=== PATIENT | male | born 1950 | race Caucasian/White ===

== ENCOUNTER → 2016-10-15 | Outpatient (CLI) | payer MEDICARE, OTHER ==
[~2016-10-15] MED LIST: AMLO10TA82 PO; ASPI-892 PO; BENA20TA72; BENA20TA72 PO; CIALIS PO; FEXO-14 PO; FEXO180T PO; FEXO30TA17; HCT25T PO; HYDR1TAB PO; OMEG1CAP74 PO; TRAM50TA2 PO; VITAMIN C 1000MG PO
--- NOTE | 2016-10-15 15:43 | Diagnostic Imaging Report ---
EXAMINATION: Two views of the cervical spine. INDICATION: Left-sided neck pain. FINDINGS: There is straightening of the cervical lordosis. The alignment of the posterior spinal line is satisfactory. The vertebral body heights are preserved. There is moderate disc height loss at the C5-6 level. There is satisfactory alignment of the lateral masses of C1 and C2. Anterior osteophytes are prominent at C5-6 and C6-7 with mild posterior osteophytes at C5-6 seen. IMPRESSION: Degenerative disc changes are most prominent at the C5-6 level with small posterior osteophytes seen. Dictated by: Dictated on workstation # [id number]
== END ==
LOC: RAD 10:45
PROVIDERS: ATTEND Family Medicine
DX: M47.812 Spondylosis without myelopathy or radiculopathy, cervical region (principal)
CPT/HCPCS: 72040

== ENCOUNTER → 2018-06-23 | Outpatient (CLI) | payer MEDICARE, OTHER ==
--- NOTE | 2018-06-23 11:00 | Diagnostic Imaging Report ---
CLINICAL INDICATION: Patient with family history of AAA. Exam: Ultrasound of the abdominal aorta. Comparison study: Ultrasound of the abdominal aorta dated 06/06/2016. Findings: Of note, the mid abdominal aorta is obscured by overlying bowel gas. The proximal and distal abdominal aorta measure 2.5 cm x 2.5 cm and 1.5 cm x 1.6 cm, in their AP and transverse dimensions, respectively. The bilateral common iliac arteries are not imaged on this exam. Impression: The mid abdominal aorta was obscured and unable to be evaluated. Otherwise, there is no evidence of aneurysmal dilation of the visualized portion of the abdominal aorta. Dictated by: Dictated on workstation # [id number]
== END ==
LOC: RAD 08:14
PROVIDERS: ATTEND Family Medicine
DX: Z13.6 Encounter for screening for cardiovascular disorders (principal); Z82.49 Family history of ischemic heart disease and other diseases of the circulatory system
CPT/HCPCS: 76775

== ENCOUNTER 2019-03-17 13:12 | Emergency (ER) | payer MEDICARE, OTHER ==
[~2019-03-17] VITALS: Ht 167.6 cm; Wt 81.6 kg
[2019-03-17] MEDS ORDERED: LIDOCAINE/EPI 2% 1:100,00 (XYLOCAINE) 20 ML VIAL INJ ONE (14:30)
--- NOTE | 2019-03-17 14:30 | ED Head Injury ---
General Chief Complaint: Laceration Stated Complaint: INJ AT HOME Nursing Triage Note: AMB TO ED REPORTS WAS PUTTING THE GARAGE DOOR DOWN HE WAS RUNNING INTO GARAGE AND DOOR HIT HIM ON TOP OF HEAD. NO LOC ,BUT DID KNOCK HIM TO GROUND Source: patient Exam Limitations: no limitations (NICHOLAS TORRES MD) History of Present Illness Date Seen by Provider: Mar 17, 2019 Time Seen by Provider: 13:59 Initial Comments Here with report hitting his head on the garage door. Apparently it was raining very hard and he was in his truck. He did the automatic garage residential door unit installer. When it was about three quarters of the [address] he jumped out of his truck and ran inside. He did not realize that the door had started to come back down for some reason and struck his head on the door. This did not come to the floor. He did not get knocked out. Denies other injury. Tetanus shot is up-to-date. Did have a fair amount of bleeding. He notes that he has laceration to the top of the head. He didn't shower and clean the wound before coming here. Injury occurred approximately an hour prior to arrival. Occurred: this afternoon Severity: moderate Location: occipital Method of Injury: direct blow Loss of Consciousness: no loss of consciousness Associated Systoms: No Nausea/Vomiting, No Weakness (NICHOLAS TORRES MD) Allergies and Home Medications Allergies Coded Allergies: Procaine HCl (Verified Allergy, 03/04/13) fluticasone propionate (Unverified Adverse Reaction, 02/24/13) MADE NASAL CONGESTION WORSE Home Medications Amlodipine Besylate 10 Mg Tablet, 10 MG PO DAILY, (Reported) Aspirin 81 Mg Tablet.dr, 81 MG PO DAILY, (Reported) Benazepril Hcl 20 Mg Tablet, 30 MG PO DAILY, (Reported) TAKES 1 & 1/2 (20MG) TABLETS DAILY Fexofenadine Hcl 60 Mg Tablet, 60 MG PO BID, (Reported) Hydrochlorothiazide 25 Mg Tab, 12.5 MG PO DAILY, (Reported) Hydrocodone Bit/Acetaminophen 1 Each Tablet, 1-2 EACH PO Q4HR PRN, (Reported) [place]-3/Dha/Epa/Fish Oil 1,000 Mg Capsule, 1,000 MG PO DAILY, (Reported) [Cialis] , 1 TAB PO EVERY OTHER DAY PRN, (Reported) NEEDED FOR ERECTILE DYSFUNCTION UNSURE OF STRENGTH [Vitamin C 1000MG] , 1,000 MG PO DAILY, (Reported) Patient Home Medication List Home Medication List Reviewed: Yes (NICHOLAS TORRES MD) Review of Systems Review of Systems Constitutional: see HPI; No dizziness, No weakness Eyes: No Symptoms Reported Respiratory: no symptoms reported Cardiovascular: no symptoms reported Musculoskeletal: No back pain, No muscle weakness; neck pain (chronic and unchanged) Skin: change in color, lesions Psychiatric/Neurological: No Symptoms Reported (NICHOLAS TORRES MD) Past Wyxkipn-Qlhlcz-Rtguhy Hx Past Med/Social Hx: Reviewed Nursing Past Med/Soc Hx (NICHOLAS TORRES MD) Patient Social History Alcohol Use: Past History Alcohol Beverage of Choice: Beer, Whiskey Recreational Drug Use: No Smoking Status: Never a Smoker Recent Foreign Travel: No Contact w/Someone Who Travel: No Recent Infectious Disease Expo: No (NICHOLAS TORRES MD) Immunizations Up To Date Tetanus Booster (TDap): Unknown (NICHOLAS TORRES MD) Past Medical History Surgeries: Yes (HERNIA) Respiratory: Yes Asthma Cardiac: Yes Hypertension Neurological: Yes Reproductive Disorders: No Gastrointestinal: No (HERNIAS) Musculoskeletal: No Endocrine: No Integumentary: No Blood Disorders: No (NICHOLAS TORRES MD) Family Medical History Reviewed Nursing Family Hx (NICHOLAS TORRES MD) No Pertinent Family Hx (NICHOLAS TORRES MD) Physical Exam Vital Signs Vital Signs - First Documented 03/17/19 13:32 Temp 96.5 Pulse 72 Resp 18 B/P (MAP) 144/82 (102) Pulse Ox 96 O2 Delivery Room Air (EDITH CAMPBELL) Vital Signs Capillary Refill : Less Than 3 Seconds (NICHOLAS TORRES MD) Height, Weight, BMI Height: 5'6.00" Weight: 180lbs. oz. 81.052103xu; BMI Method:Stated General Appearance: WD/WN, no apparent distress HEENT: PERRL/EOMI, pharynx normal Neck: non-tender, full range of motion, supple, normal inspection Cardiovascular: regular rate, rhythm, no murmur Respiratory: lungs clear, normal breath sounds Psychiatric: alert, oriented x 3 Crainal Nerves: normal hearing, normal speech, PERRL Coordination/Gait: normal gait Motor/Sensory: no motor deficit, no sensory deficit Skin: warm/dry, other (8 cm horseshoe-shaped laceration to the top of the head with the opening at the front and the closed and to the back.) (NICHOLAS TORRES MD) Stone Coma Score Best Eye Response: (4) Open Spontaneously Best Verbal Response: (5) Oriented Best Motor Response: (6) Obeys Commands (NICHOLAS TORRES MD) Procedures/Interventions Wound Location: Scalp (frontal) Wound Length (cm): 6.5 (Wound 5 x 1.5 cm) Wound's Depth, Shape: superficial, flap Wound Explored: clean Irrigated w/ Saline (ccs): 1500 Betadine Prep?: Yes Anesthesia: Lidocaine w/ Epi Volume Anesthetic (ccs): 5 Wound Debrided: minimal Staple Repair: Stapler 35W Number of Sutures: 11 Sterile Dressing Applied?: No Progress Wound well approximated, no active bleeding after closure, patient tolerated procedure well. (EDITH CAMPBELL) Progress/Results/Core Measures Results/Orders Medications Given in ED Current Medications Medications Dose Ordered Sig/Christopher Route Start Time Stop Time Status Last Admin Dose Admin Diphtheria/ Tetanus/Acell Pertussis 0.5 ml ONCE ONCE IM 03/17/19 14:45 03/17/19 14:46 DC 03/17/19 14:46 0.5 ML (EDITH CAMPBELL) Vital Signs/I&O 03/17/19 13:32 Temp 96.5 Pulse 72 Resp 18 B/P (MAP) 144/82 (102) Pulse Ox 96 O2 Delivery Room Air (EDITH CAMPBELL) Blood Pressure Mean: 102 Progress Progress Note : Progress Note Seen and evaluated. CT head ordered. Laceration repair. 1444: Patient reports that he is actually not sure if he had tetanus now in the last 5 years so we will go ahead and give that to him. (NICHOLAS TORRES MD) Diagnostic Imaging Diagonstic Imaging: CT Plain Films/CT/US/NM/MRI: head Comments NAME: [facility] REC#: [id number] PT STATUS: REG ER : 1950 PHYSICIAN: NICHOLAS TORRES MD ADMIT DATE: 03/17/19/ER Draft Date of Exam:03/17/19 CT HEAD WO PROCEDURE: CT head without contrast. TECHNIQUE: Multiple contiguous axial images were obtained through the brain without the use of intravenous contrast. Auto Exposure Controls were utilized during the CT exam to meet ALARA standards for radiation dose reduction. INDICATION: Head injury with laceration to the top of the head. COMPARISON: No prior studies are available for comparison. FINDINGS: Ventricles and sulci are within normal limits. No sulcal effacement or midline shift is seen. No acute intra-axial or extra-axial hemorrhage is seen. Cisterns are patent. Visualized paranasal sinuses are clear. No depressed calvarial fracture is seen. IMPRESSION: No acute intracranial process is detected. Dictated on workstation # [id number] Dict: 03/17/19 1439 Trans: 03/17/19 1443 [id number] Interpreted by: SUSAN HUNTER MD Electronically signed by: (NICHOLAS TORRES MD) Departure Impression Primary Impression: Scalp laceration Qualified Codes: S01.01XA - Laceration without foreign body of scalp, initial encounter Additional Impression: Head injury due to trauma Qualified Codes: S09.90XA - Unspecified injury of head, initial encounter Disposition: HOME, SELF-CARE Condition: Improved Departure-Patient Inst. Decision time for Depature: 14:47 (NICHOLAS TORRES MD) Referrals: ALEKSANDR VALENCIA MD (PCP/Family) Primary Care Physician Patient Instructions: Laceration Repair With [place] (DC), Minor Head Injury (DC) Add. Discharge Instructions: All discharge instructions reviewed with patient and/or family. Voiced understanding. You may take Tylenol/acetaminophen 1000 mg every 6 hours as needed for pain. You may take ibuprofen 600 mg every 8 hours as needed for pain. [place] out in 7 days. Follow-up with your DrJake in a few days for recheck. Your tetanus shot was updated today. You may use antibiotic ointment over stable wound daily. It is okay to shower but do not soak wound in any body of water. Return for worse pain, vision problems, weakness, balance problems, vomiting or other concerns as needed. NICHOLAS TORRES MD Mar 17, 2019 14:30 EDITH CAMPBELL Mar 17, 2019 15:13
--- NOTE | 2019-03-17 14:43 | Diagnostic Imaging Report ---
PROCEDURE: CT head without contrast. TECHNIQUE: Multiple contiguous axial images were obtained through the brain without the use of intravenous contrast. Auto Exposure Controls were utilized during the CT exam to meet ALARA standards for radiation dose reduction. INDICATION: Head injury with laceration to the top of the head. COMPARISON: No prior studies are available for comparison. FINDINGS: Ventricles and sulci are within normal limits. No sulcal effacement or midline shift is seen. No acute intra-axial or extra-axial hemorrhage is seen. Cisterns are patent. Visualized paranasal sinuses are clear. No depressed calvarial fracture is seen. IMPRESSION: No acute intracranial process is detected. Dictated by: Dictated on workstation # [id number]
[2019-03-17] MEDS ORDERED: TETANUS,DIPTH,PERTUSS P/F (BOOSTRIX) 0.5 ML VIAL IM ONE (14:45)
[2019-03-17 15:14] VITALS: BP 138/90
--- OUTSIDE RECORDS SUMMARY | 2019-03-17 16:39 | XMS REPORT | Continuity of Care Document ---
Author Organization Unknown Address Unknown Allergies Active Description Code Type Severity Reaction Onset Reported/Identified Relationship to Patient Clinical Status Yes fluticasone propionate [id number] Drug Allergy Unknown N/A 02/24/2013 Yes Procaine HCl [id number] Drug Allergy Unknown N/A 03/04/2013 Medications There is no data. 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 03/04/2013 CHERYL JIMENEZ, PHIL Rivera Ot 550.90 UNILAT INGUINAL HERNIA 03/04/2013 CHERYL JIMENEZ, PHIL Rivera Ot 553.1 UMBILICAL HERNIA 12/28/2014 Ot V17.1 12/28/2014 Ot 401.9 12/28/2014 Ot V12.54 12/28/2014 CHERYL JIMENEZ, PHIL Rivera Ot 401.9 12/28/2014 CHERYL JIMENEZ, PHIL Rivera Ot 550.90 12/28/2014 CHERYL JIMENEZ, PHIL Rivera Ot 553.20 12/28/2014 CHERYL JIMENEZ, PHIL Rivera Ot V72.81 12/28/2014 CHERYL JIMENEZ, PHIL Rivera Ot V74.8 12/28/2014 SIDDHARTHA DAVISON MD Ot V17.49 05/09/2015 SIDDHARTHA DAVISON MD Ot V17.49 05/18/2015 SIDDHARTHA DAVISON MD Ot V17.49 06/06/2016 ALEKSANDR VALENCIA MD Ot I72.9 ANEURYSM OF UNSPECIFIED SITE 06/07/2016 ALEKSANDR VALENCIA MD Ot Z13.6 ENCOUNTER FOR SCREENING FOR CARDIOVASCUL 06/10/2016 ALEKSANDR VALENCIA MD Ot Z13.6 ENCOUNTER FOR SCREENING FOR CARDIOVASCUL 06/27/2016 ALEKSANDR VALENCIA MD Ot Z13.6 ENCOUNTER FOR SCREENING FOR CARDIOVASCUL 09/23/2016 Ot V17.1 FAMILY HX-STROKE 09/23/2016 Ot 401.9 HYPERTENSION NOS 09/23/2016 Ot V12.54 PERSONAL HX OF TIA, CEREBRAL INFARCTION 09/23/2016 CHERYL JIMENEZ, PHIL Rivera Ot 401.9 HYPERTENSION NOS 09/23/2016 CHERYL JIMENEZ, PHIL Rivera Ot 550.90 UNILAT INGUINAL HERNIA 09/23/2016 CHERYL JIMENEZ, PHIL Rivera Ot 553.20 VENTRAL HERNIA NOS 09/23/2016 CHERYL JIMENEZ, PHIL Rivera Ot V72.81 APUT-LWP-AAQSORPTL CARDIOVASCULAR 09/23/2016 CHERYL JIMENEZ, PHIL Rivera Ot V74.8 SCREEN-BACTERIAL DIS NEC 09/23/2016 SIDDHARTHA DAVISON MD Ot V17.49 FAMILY HISTORY OF OTHER CARDIOVASCULAR D 10/16/2016 ALEKSANDR VALENCIA MD Ot M47.812 SPONDYLOSIS W/O MYELOPATHY OR RADICULOPA 10/31/2016 ALEKSANDR VALENCIA MD, Ot M47.812 SPONDYLOSIS W/O MYELOPATHY OR RADICULOPA 06/23/2018 SIDDHARTHA DAVISON MD Ot V17.49 FAMILY HISTORY OF OTHER CARDIOVASCULAR D 06/23/2018 ALEKSANDR VALENCIA MD Ot Z13.6 ENCOUNTER FOR SCREENING FOR CARDIOVASCUL 06/23/2018 ALEKSANDR VALENCIA MD Ot M47.812 SPONDYLOSIS W/O MYELOPATHY OR RADICULOPA 06/23/2018 SIDDHARTHA DAVISON MD Ot V17.49 FAMILY HISTORY OF OTHER CARDIOVASCULAR D 06/23/2018 ALEKSANDR VALENCIA MD Ot Z13.6 ENCOUNTER FOR SCREENING FOR CARDIOVASCUL 06/23/2018 ALEKSANDR VALENCIA MD Ot M47.812 SPONDYLOSIS W/O MYELOPATHY OR RADICULOPA 06/25/2018 ALEKSANDR VALENCIA MD Ot Z13.6 ENCOUNTER FOR SCREENING FOR CARDIOVASCUL 06/25/2018 ALEKSANDR VALENCIA MD Ot Z82.49 FAMILY HX OF ISCHEM HEART DIS AND OTH DI 07/17/2018 ALEKSANDR VALENCIA MD Ot Z13.6 ENCOUNTER FOR SCREENING FOR CARDIOVASCUL 07/17/2018 ALEKSANDR VALENCIA MD Ot Z82.49 FAMILY HX OF ISCHEM HEART DIS AND OTH DI Procedures There is no data. Results There is no data. Encounters ACCT No. Visit Date/Time Discharge Status Pt. Type Provider Facility Loc./Unit Complaint [id number] 06/23/2018 08:14:00 06/23/2018 23:59:59 CLS Outpatient ALEKSANDR VALENCIA MD [facility] RAD FAMILY HX OF AORTIC ANEURYSM [id number] 10/15/2016 10:45:00 10/15/2016 23:59:59 CLS Outpatient ALEKSANDR VALENCIA MD Via [facility] RAD LT SIDED CERVICAL NECK PAIN [id number] 06/06/2016 09:40:00 06/06/2016 23:59:59 CLS Outpatient ALEKSANDR VALENCIA MD [facility] RAD MOTHER AND FATHER W/AORTIC ANEURYSM [id number] 03/24/2015 08:27:00 03/24/2015 23:59:59 CLS Outpatient SIDDHARTHA DAVISON MD [facility] RAD FAMILY HX OF ABDOMINAL AORTIC ANEURIMS [id number] 08/04/2013 09:57:00 08/04/2013 23:59:59 CLS Outpatient SIDDHARTHA DAVISON MD [facility] RAD FAM HX OF ANURYSM [id number] 03/04/2013 06:07:00 03/04/2013 13:15:00 DIS Outpatient PHIL LUNA MD Via [facility] RIGHT INGUINAL AND VENTRAL HERNIAS [id number] 02/24/2013 08:41:00 02/24/2013 23:59:59 CLS Outpatient PHIL LUNA MD [facility] PREOP RIGHT INGUINAL AND VENTRAL HERNIAS [id number] 01/31/2013 18:48:00 01/31/2013 21:16:00 DIS Emergency ANGELA EDWARDS [facility] ER R SIDE ABD PAIN [id number] 07/15/2012 09:37:00 Document Registration [id number] 07/02/2011 07:06:00 Document Registration [id number] 10/25/2009 12:46:00 Document Registration
== END 2019-03-17 15:14 | disposition home or self-care (01) ==
LOC: EDUNIT# 13:12 → ER 13:12
DX: S09.90XA Unspecified injury of head, initial encounter (principal); S01.01XA Laceration without foreign body of scalp, initial encounter; I10 Essential (primary) hypertension; J45.909 Unspecified asthma, uncomplicated; R40.2142 Coma scale, eyes open, spontaneous, at arrival to emergency department; R40.2252 Coma scale, best verbal response, oriented, at arrival to emergency department; R40.2362 Coma scale, best motor response, obeys commands, at arrival to emergency department; Z98.890 Other specified postprocedural states; Z79.82 Long term (current) use of aspirin; Z88.4 Allergy status to anesthetic agent; Z88.8 Allergy status to other drugs, medicaments and biological substances; W22.8XXA Striking against or struck by other objects, initial encounter; Y93.02 Activity, running
CPT/HCPCS: 12015; 70450; 90471; 90715

== ENCOUNTER 2019-03-26 10:25 | Emergency (ER) | payer MEDICARE, OTHER ==
[~2019-03-26] VITALS: Ht 167.6 cm; Wt 81.6 kg
[2019-03-26 10:46] VITALS: BP 135/85
--- OUTSIDE RECORDS SUMMARY | 2019-03-26 19:29 | XMS REPORT | Continuity of Care Document ---
Author Organization Unknown Address Unknown Allergies Active Description Code Type Severity Reaction Onset Reported/Identified Relationship to Patient Clinical Status Yes fluticasone propionate [id number] Drug Allergy Unknown N/A 02/24/2013 Yes Procaine HCl [id number] Drug Allergy Unknown N/A 03/04/2013 Medications There [...] 09/23/2016 CHERYL JIMENEZ, PHIL Rivera Ot V72.81 [facility]-BABEZMC[facility] CARDIOVASCULAR 09/23/2016 CHERYL JIMENEZ, PHIL Rivera Ot [...] W/O MYELOPATHY OR RADICULOPA 06/25/2018 ALEKSANDR VALENCIA MD, Ot Z13.6 ENCOUNTER FOR SCREENING FOR CARDIOVASCUL 06/25/2018 ALEKSANDR VALENCIA MD, Ot Z82.49 FAMILY HX OF ISCHEM HEART DIS AND OTH DI 07/17/2018 ALEKSANDR VALENCIA MD, Ot Z13.6 ENCOUNTER FOR SCREENING FOR CARDIOVASCUL 07/17/2018 ALEKSANDR VALENCIA MD, Ot Z82.49 FAMILY HX OF ISCHEM HEART DIS AND OTH DI 03/23/2019 NICHOLAS TORRES MD, Ot I10 ESSENTIAL (PRIMARY) HYPERTENSION 03/23/2019 NICHOLAS TORRES MD, Ot J45.909 UNSPECIFIED ASTHMA, UNCOMPLICATED 03/23/2019 NICHOLAS TORRES MD, Ot R40.2142 COMA SCALE, EYES OPEN, SPONTANEOUS, EMR 03/23/2019 NICHOLAS TORRES MD, Ot R40.2252 COMA SCALE, BEST VERBAL RESPONSE, ORIENT 03/23/2019 NICHOLAS TORRES MD, Ot R40.2362 COMA SCALE, BEST MOTOR RESPONSE, OBEYS C 03/23/2019 NICHOLAS TORRES MD, Ot S01.01XA LACERATION WITHOUT FOREIGN BODY OF SCALP 03/23/2019 NICHOLAS TORRES MD, Ot S09.90XA UNSPECIFIED INJURY OF HEAD, INITIAL ENCO 03/23/2019 NICHOLAS TORRES MD, Ot W22.8XXA STRIKING AGAINST OR STRUCK BY OTHER OBJE 03/23/2019 NICHOLAS TORRES MD, Ot Y93.02 ACTIVITY, RUNNING 03/23/2019 NICHOLAS TORRES MD, Ot Z79.82 SHELTER (CURRENT) USE OF ASPIRIN 03/23/2019 NICHOLAS TORRES MD Ot Z88.4 ALLERGY STATUS TO ANESTHETIC AGENT STATU 03/23/2019 NICHOLAS TORRES MD, Ot Z88.8 ALLERGY STATUS TO OT DRUG/MEDS/BIOL SUB 03/23/2019 NICHOLAS TORRES MD, Ot Z98.890 OTHER SPECIFIED POSTPROCEDURAL STATES Procedures There is no data. Results There is no data. Encounters ACCT No. Visit Date/Time Discharge Status Pt. Type Provider Facility Loc./Unit Complaint [id number] 03/26/2019 10:26:00 03/26/2019 10:49:00 DIS Emergency NICHOLAS TORRES MD [facility] ER STAPLE REMOVAL [id number] 2019 13:12:00 2019 15:14:00 DIS Outpatient NICHOLAS TORRES MD [facility] ER INJ AT HOME [id number] 06/23/2018 08:14:00 06/23/2018 23:59:59 CLS Outpatient ALEKSANDR VALENCIA MD [facility] RAD FAMILY HX OF AORTIC ANEURYSM [id number] 10/15/2016 10:45:00 10/15/2016 23:59:59 CLS Outpatient ALEKSANDR VALENCIA MD [facility] RAD LT SIDED CERVICAL NECK PAIN [id number] 06/06/2016 09:40:00 06/06/2016 23:59:59 CLS Outpatient ALEKSANDR VALENCIA MD [facility] RAD MOTHER AND FATHER W/AORTIC ANEURYSM [id number] 03/24/2015 08:27:00 03/24/2015 23:59:59 CLS Outpatient SIDDHARTHA DAVISON MD [facility] RAD FAMILY HX OF ABDOMINAL AORTIC ANEURIMS [id number] 08/04/2013 09:57:00 08/04/2013 23:59:59 CLS Outpatient SIDDHARTHA DAVISON MD [facility] RAD FAM HX OF ANURYSM [id number] 03/04/2013 06:07:00 03/04/2013 13:15:00 DIS Outpatient PHIL LUNA MD [facility] SDC RIGHT INGUINAL AND VENTRAL HERNIAS [id number] 02/24/2013 08:41:00 02/24/2013 23:59:59 CLS Outpatient PHIL LUNA MD [facility] PREOP RIGHT INGUINAL AND VENTRAL HERNIAS [id number] 01/31/2013 18:48:00 01/31/2013 21:16:00 DIS Emergency ANGELA EDWARDS [facility] ER R SIDE ABD PAIN [id number] 07/15/2012 09:37:00 Document Registration [id number] 07/02/2011 07:06:00 Document Registration [id number] 10/25/2009 12:46:00 Document Registration
== END 2019-03-26 10:49 | disposition home or self-care (01) ==
LOC: EDUNIT# 10:25 → ER 10:26
DX: S01.91XD Laceration without foreign body of unspecified part of head, subsequent encounter (principal); X58.XXXD Exposure to other specified factors, subsequent encounter

== ENCOUNTER → 2019-07-12 | Outpatient (CLI) | payer MEDICARE, OTHER ==
--- NOTE | 2019-07-12 09:24 | Diagnostic Imaging Report ---
INDICATION: Family history of aortic aneurysm. COMPARISON: June 23, 2018. TECHNIQUE: Ultrasound of the abdominal aorta dated July 12, 2019. FINDINGS: The proximal abdominal aorta measures 2.3 x 2.1 cm. The midabdominal aorta measures 1.7 x 1.6 cm. The distal abdominal aorta measures 1.7 x 1.7 cm. There is normal tapering of the abdominal aorta. The bilateral common iliac arteries are not dilated. IMPRESSION: No aneurysmal dilatation of the abdominal aorta. Dictated by: Dictated on workstation # [id number]
== END ==
LOC: RAD 08:38
PROVIDERS: ATTEND Family Medicine
DX: Z01.89 Encounter for other specified special examinations (principal); Z83.2 Family history of diseases of the blood and blood-forming organs and certain disorders involving the immune mechanism
CPT/HCPCS: 76775

== ENCOUNTER 2019-07-21 05:37 | Outpatient (CLI) | payer MEDICARE, OTHER ==
[~2019-07-21] VITALS: Ht 170.2 cm; Wt 81.8 kg
[2019-07-21] MEDS ORDERED: HYDR25TA4 PO (13:45)
[2019-07-21] MEDS ORDERED: ASCO10006 PO (13:45)
[2019-07-21] MEDS ORDERED: OMEG1200 PO (13:45)
[2019-07-21] MEDS ORDERED: ASPI-479 PO (13:45)
[2019-07-21] MEDS ORDERED: FEXO-45 PO (13:45)
[2019-07-21] MEDS ORDERED: BENA20TA7 PO (13:45)
[2019-07-21] MEDS ORDERED: AMLO10TA7 PO (13:45)
== END 2019-07-21 13:46 | disposition home or self-care (01) ==
LOC: PREOP 05:37
PROVIDERS: ATTEND Surgery
DX: Z01.818 Encounter for other preprocedural examination (principal)

== ENCOUNTER 2019-07-28 08:23 | Day surgery (SDC) | payer MEDICARE, OTHER ==
--- NOTE | 2019-07-19 09:30 | HISTORY AND PHYSICAL ---
DATE OF SERVICE: 07/28/2019 PROCEDURE DATE: 07/28/2019. ATTENDING PHYSICIAN: Dr. Gallo. HISTORY OF PRESENT ILLNESS: The patient is a 69-year-old male, who was referred over to us for a screening colonoscopy. The patient reports that at this point in his life he has never had one done before. He denies any blood in his stool as well as no family history of colon cancer. He denies any diarrhea, constipation or any abdominal pain. PAST MEDICAL HISTORY: Stroke in 1998, hypertension, basal and squamous cell skin cancers. PAST SURGICAL HISTORY: Tonsillectomy at 4 years of age, right hand repair of third, fourth and fifth digits after a band saw accident, laparoscopic right inguinal hernia repair and umbilical hernia repair in 2011. ALLERGIES: LATEX. MEDICATIONS: 1. Hydrochlorothiazide 25 mg daily. 2. Benazepril 20 mg daily. 3. Amlodipine 10 mg daily. 4. Aspirin 81 mg daily. 5. Dayna. 6. Vitamin C 500 mg. 7. Fish oil 1200 mg. SOCIAL HISTORY: Previous for smoke at 2 packs per day for 21 years, quit in 1998, 2 to 6 drinks alcohol daily. FAMILY HISTORY: Mother, hypertension and abdominal aortic aneurysm. Father, hypertension and abdominal aortic aneurysm. Paternal grandmother, breast cancer and hypertension. Paternal grandfather, hypertension and abdominal aortic aneurysm. Maternal grandmother and grandfather, hypertension. REVIEW OF SYSTEMS: A well-nourished male in no acute distress. He is not experiencing any shortness of breath or difficulty breathing. No chest pain, palpitations or diaphoresis. No nausea, vomiting or abdominal pain. No diarrhea or constipation. No red blood per rectum. No dark tarry stools. No fever or chills. No recent inadvertent weight loss. All other review of systems are negative. PHYSICAL EXAMINATION: VITAL SIGNS: Blood pressure is 142/80. Current weight is 179.5, height 5 feet 7 inches. CHEST: Clear. Good breath sounds bilaterally. HEART: Regular. No murmurs. EXTREMITIES: No lower extremity edema. Negative Homans sign. HEENT: No scleral icterus. No cervical lymphadenopathy. ABDOMEN: Soft, nontender, nondistended. SKIN: Warm, dry and pink. NEUROLOGIC: Awake, alert and oriented x3. ASSESSMENT AND PLAN: A 69-year-old male, who is in need of a screening colonoscopy. The risk and benefits of the procedure as well as the procedure and home care instructions were explained to the patient. The patient verbalized understanding of instructions and agrees to proceed as planned. At this time, we will proceed with scheduling the patient for a screening colonoscopy. Job ID: [id number] DocumentID: [id number] Dictated Date: 06/30/2019 16:07:36 Eligibility Consultant Date: 06/30/2019 17:09:18 Dictated By: CODEY LEE APRN
[~2019-07-28] VITALS: Ht 170.2 cm; Wt 81.8 kg
[~2019-07-28 08:23] MED LIST changes: +AMLO10TA7 PO; +ASCO10006 PO; +ASPI-479 PO; +BENA20TA7 PO; +FEXO-45 PO; +HYDR25TA4 PO; +OMEG1200 PO
[2019-07-28 08:30] VITALS: BP 158/100
[2019-07-28] MEDS ORDERED: LACTATED RINGERS 1,000 ML IV ONE (08:32)
[2019-07-28] MEDS ORDERED: LACTATED RINGERS 1,000 ML IV STA (08:33)
[2019-07-28] MEDS ORDERED: LIDOCAINE JELLY 2% 6 ML SYRINGE MM PRN (08:45)
[2019-07-28] MEDS ORDERED: LIDOCAINE JELLY 2% 6 ML SYRINGE ONE (09:10)
[2019-07-28] MEDS ORDERED: MIDAZOLAM 5 MG/5 ML (VERSED) VIAL ONE ×2 (09:10)
[2019-07-28] MEDS ORDERED: fentaNYL INJECTION 100 MCG/2 ML AMP ONE (09:11)
[2019-07-28] MEDS ORDERED: proPOfol 200 MG/20 ML (DIPRIVAN) VIAL IV ONE ×2 (09:44→10:03)
[2019-07-28] MEDS ORDERED: MIDAZOLAM 2 MG/2 ML (VERSED) VIAL ONE (09:44)
--- NOTE | 2019-07-28 09:50 | Progress Note-Pre Operative ---
Pre-Operative Progress Note H&P Reviewed The H&P was reviewed, patient examined and no changes noted. Date Seen by Provider: Jul 28, 2019 Time Seen by Provider: 09:30 Date H&P Reviewed: Jul 28, 2019 Time H&P Reviewed: :30 Pre-Operative Diagnosis: screening KEVON Ontiveros MD Jul 28, 2019 09:50 POS
--- NOTE | 2019-07-28 09:54 | Discharge Inst-Surgical ---
D/C Lap Instructions-MARCIANO Follow Up Activity as tolerated High Fiber Diet 25g or more per day Avoid Alcohol, Caffeine, Spicy Hondo and Acid foods. Drink 64 fluid oz or more of fluids per day. Symptoms to Report: Fever over 101 degree F, Nausea/Vomiting If any problems/questions: Contact your physician or go to Emergency Room KEVON TARIQ MD Jul 28, 2019 09:54 POS
[2019-07-28] MEDS ORDERED: HYDROcodone/APAP 5 MG/325 MG (LORTAB) TAB PO PRN (10:00)
[2019-07-28] MEDS ORDERED: morphine INJ 10 MG/ML 1ML (SYR OR VIAL) IVP PRN ×2 (10:00)
[2019-07-28] MEDS ORDERED: ACETAMINOPHEN 325 MG TABLET PO PRN (10:00)
[2019-07-28] MEDS ORDERED: ONDANSETRON 4 MG/2 ML (SDV) Z0FRAN IVP PRN (10:00)
[2019-07-28 10:15] VITALS: BP 110/65
--- NOTE | 2019-07-28 10:18 | Progress Note-Post Operative ---
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 Procedure & Operative Findings Date of Procedure 07/28/19 Procedure Performed/Findings colonoscopy Anesthesia Type mac Estimated Blood Loss Estimated blood loss (mL): minimal Specimens/Packing Specimens Removed none KEVON TARIQ MD Jul 28, 2019 10:18 POS
[2019-07-28 10:20] VITALS: BP 110/65
[2019-07-28 10:40] VITALS: BP 122/80
[2019-07-28 10:50] VITALS: BP 122/80
--- NOTE | 2019-07-28 14:01 | OPERATIVE REPORT ---
DATE OF SERVICE: 07/28/2019 ATTENDING PRIMARY CARE PHYSICIAN: Lucio Gallo MD PREOPERATIVE DIAGNOSIS: Screening colonoscopy. POSTOPERATIVE DIAGNOSIS: Mild chronic stage II external and internal hemorrhoids. PROCEDURE: Colonoscopy. SURGEON: Kevon Tariq MD ANESTHESIA: Monitored anesthesia care. ESTIMATED BLOOD LOSS: Minimal. FINDINGS: Mild chronic stage II external and internal hemorrhoids. DISPOSITION: The patient tolerated the procedure well. INDICATIONS: The patient is a 69-year-old male in need of a screening colonoscopy. He has not had a colonoscopy up to this point in his life. He reports for the most part he is doing well, does not report any major issues with diarrhea nor constipation as well as no red blood per rectum nor any dark tarry stools. He also does not report any family history of colon cancer. He has not had a colonoscopy up to this point in his life. DESCRIPTION OF PROCEDURE: The patient was brought to the endoscopy suite, laid in the left lateral decubitus position. After adequate IV pain, sedative medications and monitored anesthesia care, a digital rectal examination was performed, which revealed mild chronic stage II external and internal hemorrhoids, not actively edematous nor inflamed and no bleeding. Normal sphincter tone was felt and there were no palpable masses. Prostate gland was palpable and appeared normal. The endoscope was then intubated to the anus and rectum was gently insufflated. The endoscope was then advanced through the valves of Fowler of the rectum with no polyps or any neoplasms identified. Through the sigmoid colon, there were no diverticulosis identified. The endoscope was then advanced to the remainder of the descending, transverse and ascending colon to the cecum. These segments were normal. There were no polyps nor any neoplasms identified throughout the colon or rectum. The endoscope was then slowly withdrawn while taking a second look and suctioning of residual air with no additional findings. The patient tolerated the procedure well. We will recommend a high fiber diet with 30 grams of fiber daily as well as significant amounts of water to promote soft stools on a daily basis. He does not need another colonoscopy for another 10 years; however, sooner if he becomes symptomatic. Job ID: [id number] DocumentID: [id number] Dictated Date: 07/28/2019 10:16:58 Reaming Press Operator Date: 07/28/2019 14:00:49 Dictated By: KEVON TARIQ MD
--- NOTE | 2019-07-28 14:45 | Anesthesia-General Post-Op ---
MAC Patient Condition Mental Status/LOC: Same as Preop Cardiovascular: Satisfactory Nausea/Vomiting: Absent Respiratory: Satisfactory Pain: Controlled Complications: Absent Post Op Complications Complications None Follow Up Care/Instructions Patient Instructions None needed. Anesthesiology Discharge Order Discharge Order Patient was seen this morning after the procedure and he was doing well, no complaints, stable vital signs, no apparent adverse anesthesia problems. TIANNA GUERRERO DO Jul 28, 2019 14:45 POS
== END 2019-07-28 10:50 | disposition home or self-care (01) ==
LOC: ENDO 08:23
PROVIDERS: ATTEND Surgery
DX: Z12.11 Encounter for screening for malignant neoplasm of colon (principal); K64.1 Second degree hemorrhoids; I10 Essential (primary) hypertension; J45.909 Unspecified asthma, uncomplicated; Z85.828 Personal history of other malignant neoplasm of skin; Z86.73 Personal history of transient ischemic attack (TIA), and cerebral infarction without residual deficits; Z79.899 Other long term (current) drug therapy; Z79.82 Long term (current) use of aspirin; Z87.891 Personal history of nicotine dependence; Z91.040 Latex allergy status

== ENCOUNTER → 2021-05-02 | Outpatient (CLI) | payer MEDICARE, OTHER ==
[~2021-05-02] MED LIST changes: +AMLO-251 PO; -AMLO10TA7 PO; +ASCO100024 PO; -ASCO10006 PO
== END ==
LOC: CARD 10:30
PROVIDERS: ATTEND Family Medicine
DX: R00.2 Palpitations (principal)
CPT/HCPCS: 93005

== ENCOUNTER → 2021-06-18 | Outpatient (CLI) | payer MEDICARE, OTHER ==
--- NOTE | 2021-06-18 12:39 | Diagnostic Imaging Report ---
INDICATION: Abdominal aortic aneurysm screening. FINDINGS: Real-time imaging shows mild atherosclerotic changes of the aorta. Aorta measures 2.5 cm proximally and 2 cm in the midportion and 1.6 cm distally with iliac arteries measuring 1.4 cm bilaterally. Color Doppler imaging shows normal flow. IMPRESSION: Mild atherosclerotic changes. No evidence of aortic aneurysm. No significant change has occurred when compared with previous ultrasound of 07/12/2019. Dictated by: Dictated on workstation # [id number]
== END ==
LOC: RAD 08:55
PROVIDERS: ATTEND Family Medicine
DX: Z82.49 Family history of ischemic heart disease and other diseases of the circulatory system (principal)
CPT/HCPCS: 76775

== ENCOUNTER → 2022-07-01 | Outpatient (CLI) | payer MEDICARE, OTHER ==
[~2022-07-01] MED LIST changes: +BENA-3 PO; -BENA20TA7 PO; +FEXO-338 PO; -FEXO-45 PO
--- NOTE | 2022-07-01 14:02 | Diagnostic Imaging Report ---
INDICATION: Screening, family history abdominal aortic aneurysm TECHNIQUE: Grayscale sonographic images of the abdominal aorta. CORRELATION STUDY: 06/18/2021 FINDINGS: Overall assessment of the abdominal aorta is somewhat limited by overlying bowel gas. No definitive abdominal aortic aneurysm. Mild atherosclerotic changes are suggested Abdominal Aorta Proximal: 2.1 x 2.8 cm Mid: 1.7 x 1.8 cm Distal: 1.7 x 1.8 cm Common Iliac Arteries Right EMIGDIO: 1.1 x 1.0 cm Left EMIGDIO: 1.1 x 1.3 cm IMPRESSION: 1. Mild atherosclerotic changes of the abdominal aorta. Negative for abdominal aortic aneurysm. Dictated by: Dictated on workstation # [id number]
== END ==
LOC: RAD 09:28
PROVIDERS: ATTEND Family Medicine
DX: I70.0 Atherosclerosis of aorta (principal); Z83.79 Family history of other diseases of the digestive system
CPT/HCPCS: 76775

== ENCOUNTER → 2022-11-25 | Outpatient (CLI) | payer MEDICARE, OTHER ==
--- NOTE | 2022-11-25 16:28 | Diagnostic Imaging Report ---
INDICATION: Cough PA and lateral views of chest are obtained. FINDINGS: Heart size and pulmonary vascularity are within normal limits, and the lungs are clear, bilaterally. IMPRESSION: Unremarkable chest. Dictated by: Dictated on workstation # [id number]
== END ==
LOC: RAD 14:34
PROVIDERS: ATTEND Family Medicine
DX: R05.9 Cough, unspecified (principal)
CPT/HCPCS: 71046

== ENCOUNTER → 2023-06-30 | Outpatient (CLI) | payer MEDICARE, OTHER ==
--- NOTE | 2023-06-30 10:40 | Diagnostic Imaging Report ---
INDICATION: PrimaryDx I71.9 AORTIC ANEURYSM OF UNSPEC COMPARISON: None TECHNIQUE: Limited abdominal sonogram was performed to evaluate the abdominal aorta. FINDINGS: The abdominal aorta is normal in course and caliber. There is no evidence of aneurysm. The axial dimensions of the abdominal aorta, at the level of the renal arteries is approximately 2.2 x 2.1 cm. Peak systolic velocity at this level is 74 cm/sec. In the mid segment these are 1.7 x 1.8 cm and distally these are 1.6 x 1.6 cm. Peak systolic velocities are 75 cm/sec and T9 cm/sec, respectively. The aortic bifurcation is unremarkable. The proximal portions of the right and left common iliac arteries are unremarkable. There is no ascites. IMPRESSION: 1. Unremarkable abdominal aorta. No evidence of stenosis or aneurysm. Dictated by: Dictated on workstation # [id number]
== END ==
LOC: RAD 09:19
PROVIDERS: ATTEND Family Medicine
DX: I71.9 Aortic aneurysm of unspecified site, without rupture (principal); Z82.49 Family history of ischemic heart disease and other diseases of the circulatory system
CPT/HCPCS: 76775